=== PATIENT | male | born 1970 | race Caucasian/White ===

== ENCOUNTER 2024-03-17 11:23 | Outpatient (AMB) | payer OTHER, SELFPAY ==
--- NOTE | 2024-03-17 11:36 | AM.OFFWIN_ITS ---
Intake Vital Signs 03/17/24 11:40 Weight 254 lb BP 130/90 H Blood Pressure Location Lt brachial Position Sitting Pulse 83 Pulse Source Pulse Oximeter Pulse Oximetry (%) 95 Oxygen Delivery Method Room Air Intake Visit Reasons: [employer]-lower back pain-work related Intake Note: Patient here for lower back pain. work related /. Patient Tobacco Use Status: Never used Tobacco Allergies epoxy resin [EPOXY RESIN] Allergy (Unknown, Unverified 03/17/24 11:41) UNKNOWN pollen extracts [POLLEN] Allergy (Unknown, Unverified 03/17/24 11:41) UNKNOWN DANDER Allergy (Unknown, Uncoded 03/17/24 11:41) UNKNOWN DUST Allergy (Unknown, Uncoded 03/17/24 11:41) UNKNOWN steel dust Allergy (Unknown, Uncoded 03/17/24 11:41) UNKNOWN Do you need a note to return to daycare/school/sports/work: Yes HPI HPI Comments History of Present Illness Details This is a 53-year-old male who presented to the walk-in clinic complaining of low back pain. He states that he was shoveling heavy objects while at work 2 days ago around 5:00 a.m. in the morning. He started to develop soreness in his low back so he went home early and has been utilizing heat/ice and acetaminophen/ibuprofen. He states that his pain is worsening. He denies any numbness/weakness/paresthesias or pain radiating into his extremities. He denies any saddle anesthesias. He denies any urinary/bowel retention/incontinence. He denies any fever/chills. He reports he feels better standing up and has been unable to sit down through periods of time down. [facility] Social History Patient Tobacco Use Status: Never used Tobacco Review of Systems Const All systems reviewed & are unremarkable except as noted in HPI and below Reports no additional complaints Eyes Reports no additional complaints ENT Reports no additional complaints Card Reports no additional complaints Resp Reports no additional complaints GI Reports no additional complaints Reports no additional complaints Musc Reports no additional complaints Skin/Breast Reports system reviewed and no additional complaints, except as documented Neuro Reports no additional complaints Psych Reports no additional complaints Endo Reports no additional complaints Roscoe/Lymph Reports no additional complaints Aller/Immun Reports no additional complaints Physical Exam Vital Signs: Last Vital Signs Pulse 83 03/17/24 11:40 BP 130/90 H 03/17/24 11:40 Pulse Ox 95 03/17/24 11:40 Oxygen Delivery Method Room Air 03/17/24 11:40 Const Other: Vital signs reviewed. Constitutional: Non-toxic appearing. No acute distress. Well-developed and well-nourished. HEENT: Normocephalic and atraumatic. Skin: Warm and dry. No rashes or lesions noted. Neck: Full and painless range of motion. No cervical lymphadenopathy. Cardio: Regular rate. No lower extremity edema. No JVD. Pulmonary: No respiratory distress. No accessory muscle usage. Musculoskeletal: There is tenderness to palpation and muscle spasms to bilateral lumbar paraspinal musculature without any significant midline or spinous process tenderness to palpation. Unable to perform straight leg raise testing as patient unable to lay flat. Neuro: Alert and oriented x4. Cranial nerves 2-12 grossly intact. No focal deficits appreciated. Psych: Normal mood and affect. Assessment & Plan Assessment & Plan (1) Low back pain: Code(s): M54.50 - Low back pain, unspecified Qualifiers: Chronicity: acute Back pain laterality: bilateral Sciatica presence: without sciatica Qualified Code(s): M54.50 - Low back pain, unspecified Plan: 53-year-old male who presented to the walk-in clinic complaining of low back pain. He denies any red flag symptoms. On physical examination, he has tenderness to palpation and muscle spasms of the bilateral paraspinal musculature. Patient very likely has a lumbar sprain/strain, very low concern for acute neurosurgical emergency given absence of red flag symptoms. Patient was given a prescription for p.o. cyclobenzaprine 10 mg 3 times daily as needed for muscle spasms and PO naproxen 500 mg twice daily as needed for pain. He was also given a physical therapy referral. I recommended supportive management including heat/ice to the area and [id number] lidocaine patches. He was advised to proceed directly to the emergency room if he were to develop any red flag symptoms as detailed above. Patient verbalizes understanding and he was in agreement with the plan and he was very appreciative of the help. Orders: Orders PT Evaluation and Treatment Today M54.50 - Low back pain, unspecified Medications: New cyclobenzaprine 10 mg PO TID PRN 20 tabs 0RF muscle spasm naproxen 500 mg PO BID PRN 20 tabs 0RF pain Coding Level of Care Code New Pt Level 3 (00463) Diagnoses Acute bilateral low back pain without sciatica M54.50 Chronicity: acute Back pain laterality: bilateral Sciatica presence: without sciatica
[2024-03-17 11:40] VITALS: BP 130/90; PULSE 83; O2SAT 95
== END 2024-03-17 12:31 | disposition home or self-care (01) ==
PROVIDERS: Visit Provider Physician Assistant Medical
DX: M54.50 Low back pain, unspecified (principal)

== ENCOUNTER → 2024-03-17 11:23 | Outpatient (BNVA) | payer OTHER, SELFPAY | DX: M54.50 Low back pain, unspecified (principal) | CPT/HCPCS: 99202 ==